=== PATIENT | female | born 1985 | race Two or more races ===

== ENCOUNTER 2018-04-04 19:18 | Emergency (ER) | payer MEDICARE, MEDICAID ==
[~2018-04-04] VITALS: Ht 152.4 cm; Wt 57.6 kg
[2018-04-04 23:10] VITALS: BP 102/51
[2018-04-04] MEDS ORDERED: IBUPROFEN 800 MG TAB PO ONE (23:30)
== END 2018-04-05 03:18 | disposition home or self-care (01) ==
LOC: ER 19:18
DX: S93.401A Sprain of unspecified ligament of right ankle, initial encounter (principal); S16.1XXA Strain of muscle, fascia and tendon at neck level, initial encounter; F41.9 Anxiety disorder, unspecified; F32.9 Major depressive disorder, single episode, unspecified; R51 Headache; M19.90 Unspecified osteoarthritis, unspecified site; F17.210 Nicotine dependence, cigarettes, uncomplicated; V43.52XA Car driver injured in collision with other type car in traffic accident, initial encounter; Y93.89 Activity, other specified; Y92.488 Other paved roadways as the place of occurrence of the external cause; Y99.8 Other external cause status
CPT/HCPCS: 70450; 72125; 73610; 81025

== ENCOUNTER 2018-07-14 00:07 | Emergency (ER) | payer MEDICARE, MEDICAID ==
[~2018-07-14] VITALS: Ht 152.4 cm; Wt 54.4 kg
[2018-07-14] MEDS ORDERED: KETOROLAC TROMETH 30 MG/ML 1ML VIAL IV ONE (01:15)
[2018-07-14 01:48] LABS: Basophils # (auto) 0 uL; Basophils % (auto) 0.4 % (0.0-2.0); Eosinophils # (auto) 0.2 uL; Eosinophils % (auto) 2.4 % (0.0-7.0); Hematocrit 34.4 % (36.0-46.0); Hemoglobin 11.4 g/dL (12.2-16.2); Lymphocytes # (auto) 3.2 uL; Mean Corpuscular Hemoglobin 27.3 pg (28.0-32.0); Mean Corpuscular Hgb Conc. 33.2 g/dL (32.0-36.0); Mean Corpuscular Volume 82.3 fL (80.0-100.0); Monocytes # (auto) 0.3 uL; Monocytes % (auto) 5.2 % (0.0-12.0); Neutrophils # (auto) 2.7 uL; Nucleated Red Blood Cells % 0.1 %; Platelet Count (auto) 191 10^3/uL (140-450); Red Blood Cells 4.18 10^6/uL (4.0-5.20); Red Cell Distribution Width 15.5 % (11.8-14.3); White Blood Cell 6.3 10^3/uL (4.4-10.8)
[2018-07-14 02:01] LABS: Potassium 3.5 mmol/L (3.5-5.1)
[2018-07-14 02:02] LABS: Albumin 3.7 g/dL (3.4-5.0); BUN/Creatinine Ratio 22.2; Calcium 7.9 mg/dL (8.5-10.1)
[2018-07-14 02:04] LABS: Bilirubin, Total 0.2 mg/dL (0.2-1.0)
[2018-07-14 04:29] VITALS: BP 119/72
== END 2018-07-14 04:02 | disposition home or self-care (01) ==
LOC: ER 00:11
DX: S06.0X1A Concussion with loss of consciousness of 30 minutes or less, initial encounter (principal); S22.32XA Fracture of one rib, left side, initial encounter for closed fracture; S16.1XXA Strain of muscle, fascia and tendon at neck level, initial encounter; F17.210 Nicotine dependence, cigarettes, uncomplicated; E07.9 Disorder of thyroid, unspecified; M19.90 Unspecified osteoarthritis, unspecified site; W11.XXXA Fall on and from ladder, initial encounter; Y93.89 Activity, other specified; Y92.098 Other place in other non-institutional residence as the place of occurrence of the external cause; Y99.8 Other external cause status
CPT/HCPCS: 36415; 70450; 71250; 72125; 73610; 80053; 84702; 85025; 96374; 99284; J1885

== ENCOUNTER 2019-12-04 20:22 | Emergency (ER) | payer MEDICARE, MEDICAID ==
[~2019-12-04] VITALS: Ht 152.4 cm; Wt 54.0 kg
[2019-12-04 21:00] LABS: Basophils # (auto) 0 10 ^3/uL (0-0.2); Basophils % (auto) 0.4 % (0.0-2.0); Eosinophils # (auto) 0.1 10 ^3/uL (0-0.8); Eosinophils % (auto) 1.2 % (0.0-7.0); Hematocrit 33.7 % (36.0-46.0); Lymphocytes # (auto) 2.9 10 ^3/uL (0.4-5.4); Lymphocytes % (auto) 34.8 % (10.0-50.0); Mean Corpuscular Hemoglobin 26.4 pg (28.0-32.0); Mean Corpuscular Hgb Conc. 32.5 g/dL (32.0-36.0); Mean Corpuscular Volume 81.1 fL (80.0-100.0); Monocytes # (auto) 0.6 10 ^3/uL (0-1.3); Neutrophils # (auto) 4.7 10 ^3/uL (1.6-8.6); Neutrophils % (auto) 56.6 % (37.0-80.0); Platelet Count (auto) 207 10^3/uL (140-450); Red Blood Cells 4.15 10^6/uL (4.0-5.20); White Blood Cell 8.4 10^3/uL (4.4-10.8)
[2019-12-04 21:17] LABS: INR 1.01 (0.9-1.15); Partial Thromboplastin Time 25.6 sec (23.64-32.05)
[2019-12-04 21:22] LABS: Albumin 3.4 g/dL (3.4-5.0); BUN/Creatinine Ratio 11.6; Calcium 8.2 mg/dL (8.5-10.1); Magnesium 2.3 mg/dL (1.6-2.6); Potassium 3.7 mmol/L (3.5-5.1)
[2019-12-04 21:24] LABS: Bilirubin, Total 0.2 mg/dL (0.2-1.0)
[2019-12-04 22:21] LABS: Urine Bacteria NONE SEEN /hpf (None Seen); Urine Blood 3+ /uL (Negative); Urine Specific Gravity 1.022 (1.001-1.035); Urine WBC 503 /hpf (0 - 5)
[2019-12-05] VITALS: BP 124/67
[2019-12-05] MEDS ORDERED: HYDROcodone-ACET 5/325MG TAB PO ONE (02:45)
== END 2019-12-05 02:59 | disposition home or self-care (01) ==
LOC: ER 20:23
DX: O20.0 Threatened abortion (principal); O23.41 Unspecified infection of urinary tract in pregnancy, first trimester; O99.331 Smoking (tobacco) complicating pregnancy, first trimester; Z3A.01 Less than 8 weeks gestation of pregnancy
CPT/HCPCS: 36415; 76801; 76817; 80053; 81001; 81025; 82150; 83690; 83735; 84702; 85025; 85610; 85730

== ENCOUNTER → 2019-12-06 | Emergency (ER) | payer MEDICARE, MEDICAID ==
[~2019-12-06] VITALS: Ht 152.4 cm; Wt 54.0 kg
[~2019-12-06] MED LIST: ACETAMINOPHEN 325 MG TAB PO ONE; cefTRIAXone SOD 1,000 MG VL IM ONE
[2019-12-06 22:45] LABS: Basophils # (auto) 0 10 ^3/uL (0-0.2); Eosinophils # (auto) 0.1 10 ^3/uL (0-0.8); Eosinophils % (auto) 1.5 % (0.0-7.0); Lymphocytes # (auto) 2.4 10 ^3/uL (0.4-5.4); Neutrophils # (auto) 3.7 10 ^3/uL (1.6-8.6)
[2019-12-06 22:47] LABS: Basophils % (auto) 0.4 % (0.0-2.0); Hematocrit 33.1 % (36.0-46.0); Hemoglobin 10.7 g/dL (12.2-16.2); Lymphocytes % (auto) 35.6 % (10.0-50.0); Mean Corpuscular Hemoglobin 26.3 pg (28.0-32.0); Mean Corpuscular Hgb Conc. 32.3 g/dL (32.0-36.0); Mean Corpuscular Volume 81.4 fL (80.0-100.0); Monocytes # (auto) 0.4 10 ^3/uL (0-1.3); Monocytes % (auto) 6.3 % (0.0-12.0); Neutrophils % (auto) 56.2 % (37.0-80.0); Platelet Count (auto) 191 10^3/uL (140-450); Red Blood Cells 4.06 10^6/uL (4.0-5.20); Red Cell Distribution Width 15.2 % (11.8-14.3); White Blood Cell 6.6 10^3/uL (4.4-10.8)
[2019-12-06 23:04] LABS: Albumin 3.2 g/dL (3.4-5.0); Calcium 8.4 mg/dL (8.5-10.1); INR 1.01 (0.9-1.15); Partial Thromboplastin Time 25.9 sec (23.64-32.05); Potassium 3.7 mmol/L (3.5-5.1)
[2019-12-06 23:06] LABS: BUN/Creatinine Ratio 19.5
[2019-12-06 23:13] LABS: Bilirubin, Total 0.2 mg/dL (0.2-1.0); Total Protein 6.8 g/dL (6.4-8.2)
[2019-12-06 23:18] VITALS: BP 104/52
[2019-12-06 23:58] LABS: Urine Bacteria MANY /hpf (None Seen); Urine Blood Negative /uL (Negative); Urine Mucus FEW (None Seen); Urine WBC 53 /hpf (0 - 5)
== END | disposition home or self-care (01) ==
LOC: ER 18:36
DX: N39.0 Urinary tract infection, site not specified (principal); D64.9 Anemia, unspecified; R79.89 Other specified abnormal findings of blood chemistry
CPT/HCPCS: 36415; 76801; 80053; 81001; 84702; 85025; 85610; 85730; 86850; 86900; 86901; 96372; 99284; J7030

== ENCOUNTER 2019-12-09 02:21 | Inpatient (IN) | payer MEDICARE, MEDICAID ==
[~2019-12-09] VITALS: Ht 152.4 cm; Wt 64.2 kg
[2019-12-09 03:34] LABS: Albumin 3.5 g/dL (3.4-5.0); Calcium 7.9 mg/dL (8.5-10.1); Potassium 3.2 mmol/L (3.5-5.1)
[2019-12-09 03:38] LABS: Bilirubin, Total 0.2 mg/dL (0.2-1.0); Total Protein 7.5 g/dL (6.4-8.2)
[2019-12-09 03:46] LABS: Basophils # (auto) 0 10 ^3/uL (0-0.2); Eosinophils # (auto) 0.1 10 ^3/uL (0-0.8); Hemoglobin 10.5 g/dL (12.2-16.2); Lymphocytes # (auto) 3.5 10 ^3/uL (0.4-5.4); Monocytes # (auto) 0.6 10 ^3/uL (0-1.3); Nucleated Red Blood Cells % 0.1 %; Red Blood Cells 3.96 10^6/uL (4.0-5.20); White Blood Cell 8.7 10^3/uL (4.4-10.8)
[2019-12-09 03:47] LABS: Basophils % (auto) 0.4 % (0.0-2.0); Eosinophils % (auto) 0.9 % (0.0-7.0); Hematocrit 32.2 % (36.0-46.0); Lymphocytes % (auto) 40.2 % (10.0-50.0); Mean Corpuscular Hemoglobin 26.5 pg (28.0-32.0); Mean Corpuscular Hgb Conc. 32.7 g/dL (32.0-36.0); Mean Corpuscular Volume 81.2 fL (80.0-100.0); Neutrophils # (auto) 4.5 10 ^3/uL (1.6-8.6); Neutrophils % (auto) 51.5 % (37.0-80.0); Platelet Count (auto) 203 10^3/uL (140-450); Red Cell Distribution Width 15.3 % (11.8-14.3)
[2019-12-09 03:57] LABS: Alcohol, Urine < 3.0 mg/dL (0-5); Amphetamine Screen, Urine NEGATIVE (NEGATIVE); Barbiturate Scree,Urine NEGATIVE (NEGATIVE); Benzodiazephine Screen, Urine NEGATIVE (NEGATIVE); Cannabinoid Screen, Urine NEGATIVE (NEGATIVE); Cocaine Screen, Urine NEGATIVE (NEGATIVE); Opiate Scree,Urine NEGATIVE (NEGATIVE); Phencyclidine Screen, Urine NEGATIVE (NEGATIVE)
[2019-12-09 04:26] LABS: Urine Bacteria NONE SEEN /hpf (None Seen); Urine Blood Negative /uL (Negative); Urine Mucus FEW (None Seen); Urine Specific Gravity 1.027 (1.001-1.035); Urine WBC 7 /hpf (0 - 5)
[2019-12-09] MEDS ORDERED: LACTATED RINGER'S 1,000 ML IV ONE ×2 (07:00)
[2019-12-09 08:21] LABS: INR 1.01 (0.9-1.15); Partial Thromboplastin Time 25.6 sec (23.64-32.05)
[2019-12-09] MEDS ORDERED: SUCCINYLCHOLINE CHLORIDE 20 MG/ML 10ML VIAL IV ONE (09:59)
[2019-12-09] MEDS ORDERED: METOCLOPRAMIDE HCL 5MG/ml INJ 2ml VIAL ONE (10:01)
[2019-12-09] MEDS ORDERED: ceFAZolin 1GM/50ML 50 ML IV ONE (10:01)
[2019-12-09] MEDS ORDERED: MIDAZOLAM HCL 1MG/1ML-2 ML VIAL ONE (10:01)
[2019-12-09] MEDS ORDERED: ROCURONIUM 10MG/ML 10ML VIAL IV ONE (10:01)
[2019-12-09] MEDS ORDERED: PROPOFOL 10 MG/ML 20 ML IV ONE (10:04)
[2019-12-09] MEDS ORDERED: HYDROCORTISONE SOD SUCC 100 MG/2ML INJ VIAL ONE (10:18)
[2019-12-09] MEDS ORDERED: fentaNYL CITRATE 100 MCG/2 ML VL ONE (10:19)
[2019-12-09] MEDS ORDERED: NALOXONE HCL 0.4 MG/ML VIAL IV PRN (10:30)
[2019-12-09] MEDS ORDERED: ONDANSETRON HCL 4 MG/2 ML VIAL IV PRN (10:30)
[2019-12-09] MEDS ORDERED: HYDROmorphone HCL 2 MG/ML VL IV PRN (10:30)
[2019-12-09] MEDS ORDERED: GLYCOPYRROLATE 0.2 MG/ML 1ML VIAL ONE (11:06)
[2019-12-09] MEDS ORDERED: NEOSTIGMINE 1 MG/ML INJ (10mg/10ML VIAL) ONE (11:06)
[2019-12-09] MEDS: HYDROmorphone HCL 2 MG/ML VL IV PRN ×8 (11:34→22:22)
[2019-12-09] MEDS ORDERED: NITROGLYCERIN 0.4 MG SL TAB SL PRN (11:45)
[2019-12-09] MEDS ORDERED: MORPHINE SULF INJ 2 MG/ML SYRINGE 1ML IV PRN (11:45)
[2019-12-09] MEDS ORDERED: ACETAMINOPHEN IV 100 ML IV ONE (11:45)
[2019-12-09] MEDS: KETOROLAC TROMETH 15 mg/ml 1ML VL IV SCH ×2 (12:00→18:00)
--- NOTE | 2019-12-09 13:00 | NUR ---
Telemetry admit from PACU MADDISON SANON admitted to Telemetry unit after SBAR received. Patient oriented to TRACY BAUTISTA, primary RN, unit, room, bed, and unit policies regarding patient care and visiting hours. Patient now on continuous telemetry monitoring, tele box # [id number] and telemetry reading on arrival to unit is 75 nsr.Encouraged to call if they need something. All questions and concerns addressed, patient verbalized understanding.
[2019-12-09] MEDS: ONDANSETRON HCL 4 MG/2 ML VIAL IV PRN ×2 (13:12→22:23)
[2019-12-09] MEDS: LACTATED RINGER'S 1,000 ML IV SCH ×2 (13:13→18:33)
--- NOTE | 2019-12-09 13:30 | NUR ---
DR BYRD TO CONTINUE ALL HOME MEDS; DR ANGEL WILL ASSUME CARE OF PATIENT MOVING FORWARD.
--- NOTE | 2019-12-09 13:42 | NUR ---
PAIN RE-ASSESSMENT PATIENT REPORTED A 4/10 MODERATE PAIN TO LOWER ABDOMEN WHICH IS AN IMPROVEMENT. PATIENT REQUESTED PAIN MEDICINE, PATIENT WILL BE GIVEN TORADOL AND REASSESSED. WILL CONTINUE TO MONITOR.
[2019-12-09 13:53] VITALS: BP 98/54
[2019-12-09] MEDS ORDERED: LORazepam 2MG/ML-1ML VIAL IV PRN (14:45)
[2019-12-09] MEDS ORDERED: levETIRAcetam 500 MG TAB PO ONE (14:45)
[2019-12-09] MEDS ORDERED: POTASSIUM EFFERVESENT TAB 25 MEQ PO ONE (15:00)
--- NOTE | 2019-12-09 16:50 | NUR ---
PAIN RE-ASSESSMENT PATIENT REPORTS PAIN 3/10 MILD AND TOLERABLE. PILLOW EFFECTIVE ABDOMINAL SPLINT WITH REPOSITIONING DISCOMFORT. WILL CONTINUE TO MONITOR
[2019-12-09 17:00] VITALS: BP 108/62
[2019-12-09] MEDS: traMADol HCL 50 MG TAB PO PRN (18:43)
--- NOTE | 2019-12-09 18:52 | NUR ---
PATIENT UP IN [place] WITH CALL LIGHT WITHIN REACH. PAIN MEDICATION GIVEN FOR 01/22 WILL CONTINUE TO MONITOR.
--- NOTE | 2019-12-09 19:02 | NUR ---
ENDORSED CARE TO GOLF INSTRUCTOR RN RIKY. PATIENT IS UP TO CHAIR GOLF INSTRUCTOR RN IS AWARE.
--- NOTE | 2019-12-09 19:27 | NUR ---
Opening Shift Note Assumed care of patient, awake and alert. No S/S of distress/SOB ,c/o s/p surgery pain 02/21 Instructed on POC and to call for assist PRN, will continue to monitor for changes Q1hr and PRN.Medicated with Hydromorphone 1mg.iv.p as needed for pain.
[2019-12-09] MEDS: SODIUM CHLOR 0.9% PF (SALINE LOCK) 10ML VIAL/SYR IV SCH (21:19)
[2019-12-09] MEDS: levETIRAcetam 500 MG TAB PO SCH (21:19)
--- NOTE | 2019-12-09 22:22 | NUR ---
Medicated with Hydromorphone 1mg.i.v.p. for pain level of 8/10 status post surgery -laparotomy ,and zofran 4mg.i.v.p. to prevent nausea as needed.
[2019-12-09 22:46] VITALS: BP 106/59
[2019-12-09] MEDS ORDERED: KETOROLAC TROMETH 30 MG/ML 1ML VIAL ONE (23:59)
[2019-12-10] MEDS: LACTATED RINGER'S 1,000 ML IV SCH ×4 (00:09→21:25)
[2019-12-10] MEDS: KETOROLAC TROMETH 15 mg/ml 1ML VL IV SCH ×2 (00:09→05:37)
[2019-12-10] MEDS ORDERED: PRED1PAK8 PO (00:47)
[2019-12-10] MEDS ORDERED: TRAM-297 PO (00:47)
[2019-12-10] MEDS ORDERED: KEP500T PO (00:47)
[2019-12-10] MEDS: HYDROmorphone HCL 2 MG/ML VL IV PRN ×5 (04:36→21:19)
[2019-12-10] MEDS: SODIUM CHLOR 0.9% PF (SALINE LOCK) 10ML VIAL/SYR IV SCH ×3 (05:36→22:21)
[2019-12-10 05:37] VITALS: BP 112/70
--- NOTE | 2019-12-10 07:12 | NUR ---
Report given to Lauren Gutierrez, patients dressing dry and intact.
[2019-12-10 07:16] LABS: Basophils # (auto) 0 10 ^3/uL (0-0.2); Basophils % (auto) 0.3 % (0.0-2.0); Eosinophils # (auto) 0 10 ^3/uL (0-0.8); Eosinophils % (auto) 0.7 % (0.0-7.0); Hematocrit 26.3 % (36.0-46.0); Hemoglobin 8.8 g/dL (12.2-16.2); Lymphocytes # (auto) 1.9 10 ^3/uL (0.4-5.4); Lymphocytes % (auto) 31.8 % (10.0-50.0); Mean Corpuscular Hemoglobin 27.4 pg (28.0-32.0); Mean Corpuscular Hgb Conc. 33.6 g/dL (32.0-36.0); Mean Corpuscular Volume 81.5 fL (80.0-100.0); Monocytes # (auto) 0.4 10 ^3/uL (0-1.3); Monocytes % (auto) 7.1 % (0.0-12.0); Neutrophils # (auto) 3.6 10 ^3/uL (1.6-8.6); Neutrophils % (auto) 60.1 % (37.0-80.0); Platelet Count (auto) 153 10^3/uL (140-450); Red Blood Cells 3.22 10^6/uL (4.0-5.20); Red Cell Distribution Width 15.3 % (11.8-14.3); White Blood Cell 5.9 10^3/uL (4.4-10.8)
[2019-12-10 07:29] LABS: Calcium 7.4 mg/dL (8.5-10.1); Potassium 3.7 mmol/L (3.5-5.1)
[2019-12-10 07:33] LABS: BUN/Creatinine Ratio 10.7
[2019-12-10] MEDS: levETIRAcetam 500 MG TAB PO SCH ×2 (08:37→21:19)
--- NOTE | 2019-12-10 08:49 | NUR ---
PAIN RE-ASSESSMENT PATIENT REPORTED PAIN 3/10 TOLERABLE AND MANAGED WELL WITH DILAUDID 1MG Q2HR. WILL CONTINUE TO MONITOR.
[2019-12-10 09:00] VITALS: BP 92/46
--- NOTE | 2019-12-10 11:30 | NUR ---
Banda catheter dc'd Order to discontinue banda catheter. Banda dc'd with clean technique following deflation of balloon. Patient tolerated well with no complaints of pain. Continue care.
[2019-12-10] MEDS: KETOROLAC TROMETH 30 MG/ML 1ML VIAL IV SCH ×2 (11:53→18:36)
--- NOTE | 2019-12-10 12:15 | NUR ---
URINATED IN THE TOILET WITHOUT DIFFICULTY, 350CC CLEAR YELLOW URINE.
--- NOTE | 2019-12-10 12:53 | NUR ---
PAIN RE-ASSESSMENT PATIENT REPORTED PAIN 3/10 TOLERABLE AND MANAGED WELL WITH TORADOL Q 6HRS.. WILL CONTINUE TO MONITOR
[2019-12-10 13:00] VITALS: BP 100/53
--- NOTE | 2019-12-10 13:30 | NUR ---
DR TEJEDA BEDSIDE ORDERES TO D/C GEORGE; KEEP BANDAGE COVERING DAVID HE WILL RE-ASSESS TOMORROW 12/11/19 AND ADVANCE DIET ONCE PATIENT PASSES GAS.
--- NOTE | 2019-12-10 14:02 | NUR ---
PAIN RE-ASSESSMENT PATIENT REPORTED PAIN 3/10 TOLERABLE AND MANAGED WELL WITH DILAUDID 1MG Q2HR. WILL CONTINUE TO MONITOR
--- NOTE | 2019-12-10 15:45 | NUR ---
IV removal/ INFILTRATED IV DC'd with clean sterile technique, catheter fully intact. Pressure dressing applied to site. Patient tolerated well.
--- NOTE | 2019-12-10 15:50 | NUR ---
ALVAREZ TO GO DOWNSTAIRS PATIENT SIGNED FORM
--- NOTE | 2019-12-10 16:30 | NUR ---
PATIENT OFF UNIT FOR VITALS.
--- NOTE | 2019-12-10 17:47 | NUR ---
IV insertion IV access obtained, via clean sterile technique by inserting 22 gauge catheter at RIGHT UPPER ARM AFTER 2 ATTEMPTS. IV secured properly. No trauma to site. Patient tolerated well.
--- NOTE | 2019-12-10 17:47 | NUR ---
RETURNED TO ROOM NO DISTRESS NOTED.
--- NOTE | 2019-12-10 18:00 | NUR ---
DIET ADVANCED TO FULL LIQUID.
--- NOTE | 2019-12-10 18:15 | NUR ---
PAIN RE-ASSESSMENT PATIENT REPORTED PAIN 7/10 TORODOL TO BE GIVEN ORDERED. ENCOURAGED PATIENT TO USE PILLOW A SPLINT WHEN REPOSITIONING, PATIENT REFUSED ICE PACK.
[2019-12-10] MEDS: SIMETHICONE 80 MG CHEWABLE TABLET PO SCH ×2 (18:35→21:19)
[2019-12-10] MEDS ORDERED: PREN-96 PO (18:55)
--- NOTE | 2019-12-10 18:55 | NUR ---
ENDORSED CARE TO NIGHT RN
[2019-12-10 18:58] LABS: Hematocrit 29.4 % (36.0-46.0); Hemoglobin 9.7 g/dL (12.2-16.2)
--- NOTE | 2019-12-10 19:00 | NUR ---
OPENING NOTE PATIENT AWAKE, ALERT AND ORIENTED. UNLABORED BREATHING. POC AND THE USE OF CALL LIGHT EXPLAINED TO PATIENT. BED ON LOWEST POSITION, CALL LIGHT WITH IN REACH.
--- NOTE | 2019-12-10 20:30 | NUR ---
PATIENT OFF UNIT, WENT DOWNSTAIRS
[2019-12-10 21:22] VITALS: BP 98/42
--- NOTE | 2019-12-10 22:20 | NUR ---
PATIENT CAME BACK TO THE UNIT, NO SIGNS OF DISTRESS
[2019-12-11] MEDS: KETOROLAC TROMETH 30 MG/ML 1ML VIAL IV SCH ×2 (01:10→05:35)
[2019-12-11] MEDS: HYDROmorphone HCL 2 MG/ML VL IV PRN ×7 (01:10→22:21)
--- NOTE | 2019-12-11 03:07 | NUR ---
PATIENT WAS MEDICATED FOR PAIN. UNLABORED RESPIRATIONS. ABDOMINAL DRESSING CLEAN AND DRY.
[2019-12-11] MEDS: LACTATED RINGER'S 1,000 ML IV SCH ×3 (03:12→18:10)
[2019-12-11 05:09] VITALS: BP 94/44
[2019-12-11] MEDS: SIMETHICONE 80 MG CHEWABLE TABLET PO SCH ×4 (05:35→22:21)
[2019-12-11] MEDS: SODIUM CHLOR 0.9% PF (SALINE LOCK) 10ML VIAL/SYR IV SCH ×3 (05:36→22:20)
[2019-12-11 05:50] LABS: Basophils # (auto) 0 10 ^3/uL (0-0.2); Basophils % (auto) 0.4 % (0.0-2.0); Eosinophils # (auto) 0.1 10 ^3/uL (0-0.8); Eosinophils % (auto) 1.8 % (0.0-7.0); Hematocrit 26.1 % (36.0-46.0); Hemoglobin 8.6 g/dL (12.2-16.2); Lymphocytes # (auto) 2.4 10 ^3/uL (0.4-5.4); Lymphocytes % (auto) 46.3 % (10.0-50.0); Mean Corpuscular Hemoglobin 27.1 pg (28.0-32.0); Mean Corpuscular Volume 82.1 fL (80.0-100.0); Monocytes # (auto) 0.5 10 ^3/uL (0-1.3); Neutrophils # (auto) 2.2 10 ^3/uL (1.6-8.6); Neutrophils % (auto) 42.5 % (37.0-80.0); Platelet Count (auto) 141 10^3/uL (140-450); Red Blood Cells 3.18 10^6/uL (4.0-5.20); Red Cell Distribution Width 15.3 % (11.8-14.3); White Blood Cell 5.2 10^3/uL (4.4-10.8)
[2019-12-11 06:20] LABS: Potassium 3.6 mmol/L (3.5-5.1)
[2019-12-11 06:26] LABS: BUN/Creatinine Ratio 11.8; Calcium 7.3 mg/dL (8.5-10.1)
--- NOTE | 2019-12-11 06:45 | NUR ---
PATIENT IN BED, RESTING UNLABORED BREATHING.
--- NOTE | 2019-12-11 07:25 | NUR ---
Opening shift note Assumed care of patient. Patient A&Ox4, respirations even and non-labored. Patient states she has 7/10 abdominal pain. Discussed POC with patient who verbalized understanding. Bed lowered/locked with 2 side rails up. Call light within reach. Will continue to monitor.
--- NOTE | 2019-12-11 08:00 | NUR ---
Pain Patient c/o /10 abdominal pain. Administered 1 mg Dilauded per EMAR. Will continue to monitor.
[2019-12-11 08:42] VITALS: BP 99/56
[2019-12-11] MEDS: levETIRAcetam 500 MG TAB PO SCH ×2 (09:56→22:20)
[2019-12-11] MEDS ORDERED: BISACODYL 10 MG RECT SUPP PR PRN (11:15)
[2019-12-11 12:58] VITALS: BP 107/67
[2019-12-11] MEDS: IBUPROFEN 800 MG TAB PO SCH ×2 (13:00→22:21)
--- NOTE | 2019-12-11 13:44 | NUR ---
Contacted Dr. Loera regarding antibiotics Contacted Dr. Loera per Dr. Rico Quiroz. Dr. Loera stated that the patient will no longer be taking antibiotics as long as the patient's temperature remains in the normal range. Current temperature is 97.9. Will continue to monitor.
--- NOTE | 2019-12-11 13:49 | NUR ---
Patient ambulating Patient ambulating downstairs utilizing wheelchair to visit with family. Educated on safety/risks, patient verbalized understanding.
--- NOTE | 2019-12-11 13:49 | NUR ---
ALVAREZ SIGNED IN CHART PATIENT WENT DOWNSTAIRS TO SEE FAMILY.
--- NOTE | 2019-12-11 15:00 | NUR ---
PATIENT IN LOBBY WITH FAMILY; DENIED PAIN; NO DISTRESS. Addendum: 12/11/19 at 1749 by TRACY BAUTISTA RN PATIENT AND FAMILY ALL WEARING MASKS.
--- NOTE | 2019-12-11 16:00 | NUR ---
PATIENT STILL IN LOBBY VISITING WITH FAMILY WEARING A MASK; DENIED PAIN; NO DISTRESS.
--- NOTE | 2019-12-11 17:50 | NUR ---
PATIENT STILL IN LOBBY WITH FAMILY , ALL ARE WEARING MASKS; DENIED PAIN NO DISTRESS NOTED.
--- NOTE | 2019-12-11 18:20 | NUR ---
PATIENT RETURNED TO ROOM. PAIN 7/ DILAUDID GIVEN ORDERED FOR SEVERE PAIN. PILLOW PROVIDED SPLINT. POSITIONED PATIENT ON RIGHT SIDE. WILL CONTINUE TO MONITOR.
--- NOTE | 2019-12-11 18:40 | NUR ---
PAIN RE-ASSESSMENT PAIN 4/10 MODERATE , PATIENT IS COMFORTABLE. IBUPROFEN WILL BE GIVEN SCHEDULED, PATIENT AWARE SHE CAN TAKE TRAMADOL NEEDED.
--- NOTE | 2019-12-11 18:50 | NUR ---
ENDORSED CARE TO NIGHT RN
--- NOTE | 2019-12-11 19:50 | NUR ---
Opening Shift Note Assumed care of patient, awake and alert. No S/S of distress/SOB. Patient is on room air. Respirations even and unlabored. Patient reports 5/10 pain in abdomen. Will medicate for pain with PRN pain medication per MD order. Patient has abdominal binder on. Side rails padded and suction at bedside for seizure precautions. Instructed on POC and to call for assist PRN, will continue to monitor for changes Q1hr and PRN.
[2019-12-11] MEDS: traMADol HCL 50 MG TAB PO PRN (19:54)
[2019-12-11 20:00] VITALS: BP 101/58
--- NOTE | 2019-12-11 21:10 | NUR ---
Patient off unit at this time. Patient has signed AMA form.
--- NOTE | 2019-12-11 21:45 | NUR ---
Patient back on unit at this time. Patient states director of physical security told her she has one hour before she gets discharged AMA. Patient educated she has 30 minutes before being discharged when going off the unit. Patient verbalized understanding.
[2019-12-11 22:00] VITALS: BP 101/58
--- NOTE | 2019-12-11 22:30 | NUR ---
Patient requested stool softener at this time but refused PRN medication available for constipation due to medication being a suppository. Patient requests oral stool softener. Will contact hospitalist.
--- NOTE | 2019-12-11 23:55 | NUR ---
Patient assisted with bed bath.
[2019-12-12] MEDS: LACTATED RINGER'S 1,000 ML IV SCH ×3 (00:01→13:01)
[2019-12-12] MEDS: traMADol HCL 50 MG TAB PO PRN ×2 (00:01→05:55)
--- NOTE | 2019-12-12 00:08 | NUR ---
Hospitalist paged regarding patient requesting oral stool softener for constipation. Awaiting callback at this time.
--- NOTE | 2019-12-12 00:18 | NUR ---
Received callback from AMBER Vogel, regarding patient requesting oral stool softener for constipation. New order received: Docusate sodium 100 mg PO BID starting now.
[2019-12-12] MEDS: DOCUSATE SOD 100 MG CAP PO SCH ×2 (00:34→10:04)
[2019-12-12] MEDS: HYDROmorphone HCL 2 MG/ML VL IV PRN ×4 (01:09→15:11)
[2019-12-12 05:00] VITALS: BP 103/55
[2019-12-12] MEDS: SODIUM CHLOR 0.9% PF (SALINE LOCK) 10ML VIAL/SYR IV SCH ×2 (05:54→13:10)
[2019-12-12] MEDS: IBUPROFEN 800 MG TAB PO SCH ×2 (05:54→13:11)
[2019-12-12] MEDS: SIMETHICONE 80 MG CHEWABLE TABLET PO SCH ×3 (05:54→13:10)
--- NOTE | 2019-12-12 06:10 | NUR ---
Incentive spirometer (IS) education provided. Patient educated on use of IS and educated to use IS 10 times per hour. Patient verbalized understanding and performed return demonstration. Patient able to reach 1500 ml.
--- NOTE | 2019-12-12 07:00 | NUR ---
CLOSING NOTE No S/S of distress/SOB. Patient is on room air. Respirations even and unlabored. Abdominal binder on. Seizure precautions in place; side rails padded and suction at bedside.
--- NOTE | 2019-12-12 07:50 | NUR ---
OPENING SHIFT NOTE Assumed care of patient. PT is awake & alert/oriented. No S/S of distress/SOB or pain. Bed in locked & lowest position with seizure precautions in place. Side rails up x2, with call light within reach. Instructed on POC and to call for assist PRN. Will continue to monitor for changes Q1hr and PRN.
[2019-12-12 09:00] VITALS: BP 108/61
[2019-12-12] MEDS: levETIRAcetam 500 MG TAB PO SCH (10:04)
[2019-12-12 13:00] VITALS: BP 115/63
--- NOTE | 2019-12-12 13:21 | NUR ---
PT STATED SHE WAS TOLD BY PHYSICAL THERAPY SHE COULD HAVE A WALKER FOR HOME AT TIME OF DISCHARGE. PHONED INDUSTRIAL ENGINEERING PROFESSOR. AWAITING CALLBACK.
--- NOTE | 2019-12-12 14:40 | NUR ---
SPOKE TO BLADE GRINDER AND DR CHUNG ABOUT WALKER. GAVE ORDERS. WILL CARRY OUT.
[2019-12-12 14:43] VITALS: BP 108/61
--- NOTE | 2019-12-12 15:06 | NUR ---
SPOKE WITH LUPE FROM BRAND ANALYST. STATED THAT IF AVAILABLE TO HER, PT WOULD RECEIVE WALKER AT HER HOME. PT IS AWARE. WILL PROCEED WITH DISCHARGE.
--- NOTE | 2019-12-12 15:09 | NUR ---
PT C/O OF PERSISTENT 7/10 ABDOMINAL PAIN AFTER MOTRIN ADMINISTRATION. WILL ADMINISTER PRN DILAUDID. PER MD ORDER.
--- NOTE | 2019-12-12 16:49 | NUR ---
Assessment Patient is a 34-year old female who is alert and oriented. Prior to admission patient lived home with her mother who is also her caregiver ([facility] [place]) and functioned with assistance. Patient informed me she does not have any medical equipment now. Patient will return home to her prior living arrangements post discharge and her mother will transport her home. Advised patient there is a Social Service consult for a walker. Informed patient clinical information will be faxed to [facility] and they will determine if she meets criteria for a walker. Patient informed me if she does meet criteria she would like walker to be deliver to home. Placed call to [facility], Spoke to Norma. Per Norma order has been received and they will deliver walker to patient home. Informed RN Will. Addendum: 12/12/19 at 1652 by LUPE MILIAN Amended: Links added.
[2019-12-12 17:00] VITALS: BP 122/66
--- NOTE | 2019-12-12 17:03 | NUR ---
Discharge instructions given as ordered. Encourage to follow up with PMD as instructed. All questions and concerns addressed. Patient verbalized understanding. Medication reconciliation form completed and copy given to patient. . IV removed with catheter intact, pressure dressing applied. Telemetry unit returned to ICU. Patient taken to vehicle via wheelchair with all personal belongings, accompanied by staff and family member. No distress noted at time of departure.
== END 2019-12-12 17:10 | disposition home or self-care (01) | DRG 818 ==
LOC: ER 02:23 → OR 1 09:33 → TELE-WESTW 09:34
PROVIDERS: ADMIT Specialist; ATTEND Family Medicine
PROC: 10T24ZZ Resection of Products of Conception, Ectopic, Percutaneous Endoscopic Approach (ICD-10-PCS; 2019-12-09)
PROC: 0DNU4ZZ Release Omentum, Percutaneous Endoscopic Approach (ICD-10-PCS; 2019-12-09)
PROC: 0UT54ZZ Resection of Right Fallopian Tube, Percutaneous Endoscopic Approach (ICD-10-PCS; principal; 2019-12-09 10:04)
DX: O00.101 Right tubal pregnancy without intrauterine pregnancy (principal); R71.0 Precipitous drop in hematocrit; G62.9 Polyneuropathy, unspecified; E07.9 Disorder of thyroid, unspecified; G40.909 Epilepsy, unspecified, not intractable, without status epilepticus; M19.90 Unspecified osteoarthritis, unspecified site; E03.9 Hypothyroidism, unspecified; E87.6 Hypokalemia; K66.0 Peritoneal adhesions (postprocedural) (postinfection); K59.00 Constipation, unspecified; F17.210 Nicotine dependence, cigarettes, uncomplicated; N83.202 Unspecified ovarian cyst, left side; F32.9 Major depressive disorder, single episode, unspecified; F41.9 Anxiety disorder, unspecified
CPT/HCPCS: 36415; 71045; 76801; 76817; 80048; 80053; 80307; 81001; 84443; 84702; 85014; 85018; 85025; 85610; 85730; 86850; 86900; 86901; 93005; 96365; 96372; 97116; 97163; 97530; G0378; J0131; J0330; J0690; J1885; J2250; J2405; J2704

== ENCOUNTER 2020-06-08 21:00 | Emergency (ER) | payer MEDICARE, MEDICAID ==
[~2020-06-08] VITALS: Ht 152.4 cm; Wt 52.6 kg
[~2020-06-08 21:00] MED LIST changes: -ACETAMINOPHEN 325 MG TAB PO ONE; +KEP500T PO; +PRED1PAK8 PO; +PREN-96 PO; +TRAM-297 PO; -cefTRIAXone SOD 1,000 MG VL IM ONE
[2020-06-08 22:16] LABS: Basophils # (auto) 0 10 ^3/uL (0-0.2); Basophils % (auto) 0.4 % (0.0-2.0); Eosinophils # (auto) 0.1 10 ^3/uL (0-0.8); Eosinophils % (auto) 2.2 % (0.0-7.0); Hemoglobin 10.3 g/dL (12.2-16.2); Lymphocytes # (auto) 2.7 10 ^3/uL (0.4-5.4); Lymphocytes % (auto) 43.3 % (10.0-50.0); Mean Corpuscular Hemoglobin 27.6 pg (28.0-32.0); Mean Corpuscular Hgb Conc. 33.2 g/dL (32.0-36.0); Mean Corpuscular Volume 83.3 fL (80.0-100.0); Monocytes # (auto) 0.4 10 ^3/uL (0-1.3); Monocytes % (auto) 6.7 % (0.0-12.0); Neutrophils % (auto) 47.4 % (37.0-80.0); Nucleated Red Blood Cells % 0.1 %; Platelet Count (auto) 155 10^3/uL (140-450); Red Blood Cells 3.71 10^6/uL (4.0-5.20); White Blood Cell 6.2 10^3/uL (4.4-10.8)
[2020-06-08 22:41] LABS: Albumin 3.3 g/dL (3.4-5.0); Calcium 8.1 mg/dL (8.5-10.1); Potassium 3.5 mmol/L (3.5-5.1)
[2020-06-08 22:45] LABS: BUN/Creatinine Ratio 10.8; Bilirubin, Total 0.2 mg/dL (0.2-1.0); Total Protein 6.3 g/dL (6.4-8.2)
[2020-06-08 23:12] LABS: Urine Bacteria FEW /hpf (None Seen); Urine Blood Negative /uL (Negative); Urine Mucus FEW (None Seen); Urine Specific Gravity 1.023 (1.001-1.035); Urine WBC 2 /hpf (0 - 5)
[2020-06-08] MEDS ORDERED: ONDANSETRON HCL 4 MG/2 ML VIAL IV ONE (23:45)
[2020-06-08] MEDS ORDERED: MORPHINE SULFATE 4 MG/ML SYR/VIAL IV ONE (23:45)
[2020-06-09 02:00] VITALS: BP 110/62
[2020-06-09] MEDS ORDERED: MAGNESIUM CITRATE SOLUTION 300 ML BTL PO ONE (02:30)
== END 2020-06-09 03:11 | disposition home or self-care (01) ==
LOC: ER 21:00
DX: K59.00 Constipation, unspecified (principal); F17.210 Nicotine dependence, cigarettes, uncomplicated; Z32.02 Encounter for pregnancy test, result negative
CPT/HCPCS: 36415; 74176; 80053; 81001; 83690; 84702; 85025; 96374; 96375; 99284; J2270; J2405

== ENCOUNTER 2020-12-07 13:09 | Emergency (ER) | payer MEDICARE, MEDICAID ==
[~2020-12-07] VITALS: Ht 152.4 cm; Wt 52.2 kg
[2020-12-07] MEDS ORDERED: ONDANSETRON HCL 4 MG/2 ML VIAL IV ONE (13:45)
[2020-12-07] MEDS ORDERED: MORPHINE SULF INJ 2 MG/ML SYRINGE 1ML IV ONE (13:45)
[2020-12-07] MEDS ORDERED: SODIUM CHLORIDE 0.9% 1,000 ML IVB ONE (13:45)
[2020-12-07 14:11] LABS: Basophils # (auto) 0 10 ^3/uL (0-0.2); Eosinophils # (auto) 0.1 10 ^3/uL (0-0.8); Hemoglobin 11.9 g/dL (12.2-16.2); Monocytes # (auto) 0.3 10 ^3/uL (0-1.3)
[2020-12-07 14:14] LABS: Basophils % (auto) 0.7 % (0.0-2.0); Eosinophils % (auto) 2.1 % (0.0-7.0); Hematocrit 35.7 % (36.0-46.0); Lymphocytes # (auto) 1.9 10 ^3/uL (0.4-5.4); Mean Corpuscular Hemoglobin 27.2 pg (28.0-32.0); Mean Corpuscular Hgb Conc. 33.4 g/dL (32.0-36.0); Mean Corpuscular Volume 81.4 fL (80.0-100.0); Monocytes % (auto) 6.5 % (0.0-12.0); Neutrophils # (auto) 2.5 10 ^3/uL (1.6-8.6); Neutrophils % (auto) 51.7 % (37.0-80.0); Nucleated Red Blood Cells % 0.2 %; Platelet Count (auto) 200 10^3/uL (140-450); Red Blood Cells 4.38 10^6/uL (4.0-5.20); Red Cell Distribution Width 15.1 % (11.8-14.3); White Blood Cell 4.9 10^3/uL (4.4-10.8)
[2020-12-07 15:11] LABS: BUN/Creatinine Ratio 16.3
[2020-12-07 15:12] LABS: Albumin 3.5 g/dL (3.4-5.0); Bilirubin, Total 0.4 mg/dL (0.2-1.0); Calcium 8.3 mg/dL (8.5-10.1)
[2020-12-07 17:52] VITALS: BP 110/58
== END 2020-12-07 18:00 | disposition home or self-care (01) ==
LOC: ER 13:09
DX: T20.10XA Burn of first degree of head, face, and neck, unspecified site, initial encounter (principal); F17.210 Nicotine dependence, cigarettes, uncomplicated; Z79.899 Other long term (current) drug therapy; W90.2XXA Exposure to laser radiation, initial encounter; Y93.89 Activity, other specified; Y92.89 Other specified places as the place of occurrence of the external cause; Y99.8 Other external cause status
CPT/HCPCS: 36415; 80053; 85025; 96361; 96374; 96375; 99284; J2270; J2405

== ENCOUNTER 2021-04-04 21:46 | Emergency (ER) | payer MEDICARE, MEDICAID ==
[~2021-04-04] VITALS: Ht 152.4 cm; Wt 54.4 kg
[2021-04-04 21:54] VITALS: BP 130/77
== END 2021-04-05 02:49 | disposition left against medical advice (07) ==
LOC: ER 21:47
DX: R51.9 Headache, unspecified (principal); R53.1 Weakness; Z53.21 Procedure and treatment not carried out due to patient leaving prior to being seen by health care provider
CPT/HCPCS: 93005

== ENCOUNTER 2021-04-29 22:53 | Emergency (ER) | payer MEDICARE, MEDICAID ==
[~2021-04-29] VITALS: Ht 152.4 cm; Wt 52.6 kg
[2021-04-29 22:53] VITALS: BP 135/69
== END 2021-04-29 23:54 | disposition left against medical advice (07) ==
LOC: ER 22:53
DX: R53.1 Weakness (principal); M79.10 Myalgia, unspecified site; Z53.21 Procedure and treatment not carried out due to patient leaving prior to being seen by health care provider

== ENCOUNTER 2021-07-08 08:35 | Emergency (ER) | payer MEDICARE, MEDICAID ==
[~2021-07-08] VITALS: Ht 152.4 cm; Wt 54.4 kg
[2021-07-08] MEDS ORDERED: KETOROLAC TROMETH 30 MG/ML 1ML VIAL IV ONE (09:15)
[2021-07-08] MEDS ORDERED: methylPREDNISolone SOD SUCC 125 MG/2 ML VL IV ONE (09:15)
[2021-07-08] MEDS ORDERED: SODIUM CHLORIDE 0.9% 1,000 ML IV ONE (09:15)
[2021-07-08 09:21] VITALS: BP 127/86
[2021-07-08 09:23] LABS: Basophils # (auto) 0 10 ^3/uL (0-0.2); Basophils % (auto) 0.1 % (0.0-2.0); Eosinophils # (auto) 0.1 10 ^3/uL (0-0.8); Eosinophils % (auto) 2.1 % (0.0-7.0); Hematocrit 38.7 % (36.0-46.0); Lymphocytes # (auto) 1.2 10 ^3/uL (0.4-5.4); Lymphocytes % (auto) 19.6 % (10.0-50.0); Mean Corpuscular Hemoglobin 28.8 pg (28.0-32.0); Mean Corpuscular Hgb Conc. 33.4 g/dL (32.0-36.0); Monocytes # (auto) 0.3 10 ^3/uL (0-1.3); Monocytes % (auto) 4.4 % (0.0-12.0); Neutrophils # (auto) 4.6 10 ^3/uL (1.6-8.6); Neutrophils % (auto) 73.8 % (37.0-80.0); Red Blood Cells 4.51 10^6/uL (4.0-5.20); Red Cell Distribution Width 14.3 % (11.8-14.3); White Blood Cell 6.2 10^3/uL (4.4-10.8)
[2021-07-08 09:29] LABS: Urine Bacteria NONE SEEN /hpf (None Seen); Urine Blood Negative /uL (Negative); Urine Specific Gravity 1.009 (1.001-1.035); Urine WBC <1 /hpf (0 - 5)
[2021-07-08 09:44] LABS: Albumin 3.4 g/dL (3.4-5.0); Magnesium 2.2 mg/dL (1.6-2.6)
[2021-07-08 09:48] LABS: BUN/Creatinine Ratio 11.1; Bilirubin, Total 0.3 mg/dL (0.2-1.0); Calcium 8.2 mg/dL (8.5-10.1)
[2021-07-08] MEDS ORDERED: PRED20TA2 PO (10:03)
[2021-07-08] MEDS ORDERED: DICY10CA GT (10:03)
[2021-07-08] MEDS ORDERED: OMEP20TA PO (10:43)
== END 2021-07-08 10:51 | disposition home or self-care (01) ==
LOC: ER 08:35
DX: M32.8 Other forms of systemic lupus erythematosus (principal); R10.32 Left lower quadrant pain; R10.11 Right upper quadrant pain; E03.9 Hypothyroidism, unspecified; F17.210 Nicotine dependence, cigarettes, uncomplicated; Z79.899 Other long term (current) drug therapy
CPT/HCPCS: 36415; 74176; 80053; 81001; 81025; 82150; 83690; 83735; 85025; 96361; 96374; 96375; 99284; J1885; J2930; J7030

== ENCOUNTER 2022-02-05 17:54 | Emergency (ER) | payer MEDICARE, MEDICAID ==
[~2022-02-05] VITALS: Ht 152.4 cm; Wt 56.7 kg
[~2022-02-05 17:54] MED LIST changes: +DICY10CA GT; +OMEP20TA PO; +PRED20TA2 PO
[2022-02-05 18:44] VITALS: BP 130/80
[2022-02-05] MEDS ORDERED: ACETAMINOPHEN 325 MG TAB PO ONE (20:15)
[2022-02-05 20:31] LABS: Basophils # (auto) 0 10 ^3/uL (0-0.2); Basophils % (auto) 0.7 % (0.0-2.0); Eosinophils # (auto) 0.1 10 ^3/uL (0-0.8); Hemoglobin 11.6 g/dL (12.2-16.2); Lymphocytes # (auto) 2.4 10 ^3/uL (0.4-5.4); Lymphocytes % (auto) 40.9 % (10.0-50.0); Mean Corpuscular Hemoglobin 27.9 pg (28.0-32.0); Mean Corpuscular Hgb Conc. 33.1 g/dL (32.0-36.0); Mean Corpuscular Volume 84.3 fL (80.0-100.0); Monocytes # (auto) 0.6 10 ^3/uL (0-1.3); Monocytes % (auto) 10.2 % (0.0-12.0); Neutrophils # (auto) 2.7 10 ^3/uL (1.6-8.6); Neutrophils % (auto) 46.2 % (37.0-80.0); Red Blood Cells 4.15 10^6/uL (4.0-5.20); Red Cell Distribution Width 13.9 % (11.8-14.3); White Blood Cell 5.9 10^3/uL (4.4-10.8)
[2022-02-05 22:23] LABS: Urine Bacteria NONE SEEN /hpf (None Seen); Urine Blood Negative /uL (Negative); Urine Mucus FEW (None Seen); Urine Specific Gravity 1.032 (1.001-1.035); Urine WBC 1 /hpf (0 - 5)
== END 2022-02-07 00:39 | disposition left against medical advice (07) ==
LOC: ER 17:54
DX: N93.9 Abnormal uterine and vaginal bleeding, unspecified (principal); E03.9 Hypothyroidism, unspecified; F17.210 Nicotine dependence, cigarettes, uncomplicated; Z79.899 Other long term (current) drug therapy
CPT/HCPCS: 36415; 76830; 76856; 81001; 84702; 85025

== ENCOUNTER 2022-02-06 12:04 | Emergency (ER) | payer MEDICARE, MEDICAID ==
[~2022-02-06] VITALS: Ht 152.4 cm; Wt 53.5 kg
[2022-02-06 14:12] LABS: Albumin 3.2 g/dL (3.4-5.0); BUN/Creatinine Ratio 15.4; Calcium 8.5 mg/dL (8.5-10.1); Potassium 4.2 mmol/L (3.5-5.1)
[2022-02-06 14:14] LABS: Bilirubin, Total 0.3 mg/dL (0.2-1.0)
[2022-02-06 14:15] LABS: Basophils # (auto) 0 10 ^3/uL (0-0.2); Basophils % (auto) 0.6 % (0.0-2.0); Eosinophils # (auto) 0.1 10 ^3/uL (0-0.8); Eosinophils % (auto) 2.1 % (0.0-7.0); Hematocrit 38.4 % (36.0-46.0); Hemoglobin 12.4 g/dL (12.2-16.2); Lymphocytes # (auto) 1.9 10 ^3/uL (0.4-5.4); Lymphocytes % (auto) 34.5 % (10.0-50.0); Mean Corpuscular Hemoglobin 27.2 pg (28.0-32.0); Mean Corpuscular Hgb Conc. 32.2 g/dL (32.0-36.0); Mean Corpuscular Volume 84.4 fL (80.0-100.0); Monocytes # (auto) 0.4 10 ^3/uL (0-1.3); Monocytes % (auto) 8.1 % (0.0-12.0); Neutrophils % (auto) 54.7 % (37.0-80.0); Nucleated Red Blood Cells % 0.1 %; Red Blood Cells 4.55 10^6/uL (4.0-5.20); White Blood Cell 5.4 10^3/uL (4.4-10.8)
[2022-02-06 15:44] VITALS: BP 134/68
== END 2022-02-06 16:57 | disposition home or self-care (01) ==
LOC: ER 12:04
DX: N93.8 Other specified abnormal uterine and vaginal bleeding (principal); E03.9 Hypothyroidism, unspecified; Z79.899 Other long term (current) drug therapy
CPT/HCPCS: 36415; 80053; 84702; 85025

== ENCOUNTER 2022-03-05 18:33 | Inpatient (IN) | payer MEDICARE, MEDICAID ==
[~2022-03-05] VITALS: Ht 152.4 cm; Wt 125.0 kg
[2022-03-05] MEDS ORDERED: ONDANSETRON HCL 4 MG/2 ML VIAL IV ONE (22:00)
[2022-03-05] MEDS ORDERED: HYDROCORTISONE SOD SUCC 100 MG/2ML INJ VIAL IV ONE (22:00)
[2022-03-05 22:50] LABS: Basophils # (auto) 0 10 ^3/uL (0-0.2); Basophils % (auto) 0.5 % (0.0-2.0); Eosinophils # (auto) 0.3 10 ^3/uL (0-0.8); Neutrophils # (auto) 2.2 10 ^3/uL (1.6-8.6); Neutrophils % (auto) 33.6 % (37.0-80.0)
[2022-03-05 22:51] LABS: Eosinophils % (auto) 5.1 % (0.0-7.0); Hematocrit 36.7 % (36.0-46.0); Lymphocytes # (auto) 3.4 10 ^3/uL (0.4-5.4); Lymphocytes % (auto) 53.8 % (10.0-50.0); Mean Corpuscular Hemoglobin 27.5 pg (28.0-32.0); Mean Corpuscular Hgb Conc. 32.8 g/dL (32.0-36.0); Monocytes # (auto) 0.4 10 ^3/uL (0-1.3); Red Blood Cells 4.36 10^6/uL (4.0-5.20); White Blood Cell 6.4 10^3/uL (4.4-10.8)
[2022-03-05 23:06] LABS: Albumin 3.4 g/dL (3.4-5.0); Calcium 8.6 mg/dL (8.5-10.1); Potassium 3.5 mmol/L (3.5-5.1)
[2022-03-05 23:10] LABS: BUN/Creatinine Ratio 11.8; Bilirubin, Total 0.2 mg/dL (0.2-1.0); CRP High Sensitivity 0.06 mg/dL (< 0.3); Total Protein 7.2 g/dL (6.4-8.2)
[2022-03-06] MEDS ORDERED: HYDROcodone-ACET 5/325MG TAB PO ONE (08:00)
[2022-03-06] MEDS ORDERED: ACETAMINOPHEN 325 MG TAB PO PRN (10:30)
[2022-03-06] MEDS ORDERED: ONDANSETRON HCL 4 MG/2 ML VIAL IV PRN (10:30)
[2022-03-06] MEDS ORDERED: VANCOMYCIN PER PHARMACY 0 MG IV SCH (10:30)
[2022-03-06] MEDS: cefTRIAXone 1GM/50ML D5W 50 ML IV SCH (11:09)
[2022-03-06] MEDS ORDERED: SODIUM CHLORIDE 0.9% 1,000 ML IV ONE (11:30)
[2022-03-06] MEDS ORDERED: IOHEXOL 300 MG/ML 100ML BOTTLE IJ ONE (11:41)
[2022-03-06 11:57] LABS: % Iron Saturation 5.6 % (15-50)
[2022-03-06] MEDS ORDERED: VANCOMYCIN 1GM/250ML 250 ML IV ONE (12:00)
[2022-03-06] MEDS: HYDROmorphone HCL 2 MG/ML VL/or syr IV PRN ×3 (12:03→20:47)
[2022-03-06] MEDS: SODIUM CHLOR 0.9% PF (SALINE LOCK) 10ML VIAL/SYR IV SCH ×2 (13:35→21:53)
[2022-03-06] MEDS: HYDROcodone-ACET 5/325MG TAB PO PRN ×2 (15:01→19:31)
[2022-03-06 16:50] VITALS: BP 121/61
[2022-03-06] MEDS: VANCOMYCIN 1GM/250ML 250 ML IV SCH (20:46)
[2022-03-06 22:10] VITALS: BP 108/58
[2022-03-07] MEDS: diphenhdrAMINE HCL 50 MG/1 ML VL IV PRN ×3 (00:06→23:22)
[2022-03-07] MEDS: VANCOMYCIN 1GM/250ML 250 ML IV SCH ×3 (04:12→20:02)
[2022-03-07] MEDS: HYDROmorphone HCL 2 MG/ML VL/or syr IV PRN ×5 (04:22→21:50)
[2022-03-07 05:42] VITALS: BP 102/61
[2022-03-07] MEDS: SODIUM CHLOR 0.9% PF (SALINE LOCK) 10ML VIAL/SYR IV SCH ×3 (06:19→22:14)
[2022-03-07 09:29] VITALS: BP 93/50
[2022-03-07] MEDS: cefTRIAXone 1GM/50ML D5W 50 ML IV SCH (10:00)
[2022-03-07 14:12] VITALS: BP 98/57
[2022-03-07 17:29] VITALS: BP 117/63
[2022-03-07 22:00] VITALS: BP 111/56
[2022-03-08] MEDS: VANCOMYCIN 1GM/250ML 250 ML IV SCH ×2 (04:09→15:45)
[2022-03-08] MEDS: HYDROmorphone HCL 2 MG/ML VL/or syr IV PRN ×5 (04:11→21:36)
[2022-03-08 05:00] VITALS: BP 94/46
[2022-03-08 05:22] LABS: Basophils # (auto) 0 10 ^3/uL (0-0.2); Basophils % (auto) 0.4 % (0.0-2.0); Eosinophils # (auto) 0.3 10 ^3/uL (0-0.8); Hematocrit 30.2 % (36.0-46.0); Hemoglobin 10.1 g/dL (12.2-16.2); Lymphocytes # (auto) 3.2 10 ^3/uL (0.4-5.4); Lymphocytes % (auto) 47.4 % (10.0-50.0); Mean Corpuscular Hgb Conc. 33.5 g/dL (32.0-36.0); Mean Corpuscular Volume 83.4 fL (80.0-100.0); Monocytes # (auto) 0.4 10 ^3/uL (0-1.3); Monocytes % (auto) 5.8 % (0.0-12.0); Neutrophils # (auto) 2.8 10 ^3/uL (1.6-8.6); Neutrophils % (auto) 41.4 % (37.0-80.0); Red Blood Cells 3.62 10^6/uL (4.0-5.20); Red Cell Distribution Width 13.8 % (11.8-14.3); White Blood Cell 6.8 10^3/uL (4.4-10.8)
[2022-03-08] MEDS: SODIUM CHLOR 0.9% PF (SALINE LOCK) 10ML VIAL/SYR IV SCH ×3 (05:42→22:08)
[2022-03-08 09:00] VITALS: BP 113/58
[2022-03-08] MEDS: diphenhdrAMINE HCL 50 MG/1 ML VL IV PRN ×3 (09:17→20:15)
[2022-03-08] MEDS: cefTRIAXone 1GM/50ML D5W 50 ML IV SCH (10:23)
[2022-03-08 13:00] VITALS: BP 105/52
[2022-03-08 17:00] VITALS: BP 125/67
[2022-03-08] MEDS: levETIRAcetam 500 MG TAB PO SCH (21:36)
[2022-03-08 22:00] VITALS: BP 104/53
[2022-03-08] MEDS ORDERED: levETIRAcetam 500 MG TAB PO SCH (22:00)
[2022-03-09] MEDS: VANCOMYCIN 1GM/250ML 250 ML IV SCH (03:57)
[2022-03-09] MEDS: diphenhdrAMINE HCL 50 MG/1 ML VL IV PRN ×2 (04:42→10:47)
[2022-03-09] MEDS: HYDROmorphone HCL 2 MG/ML VL/or syr IV PRN ×2 (04:47→10:12)
[2022-03-09 05:00] VITALS: BP 102/58
[2022-03-09] MEDS: SODIUM CHLOR 0.9% PF (SALINE LOCK) 10ML VIAL/SYR IV SCH (05:43)
[2022-03-09 05:46] LABS: Basophils # (auto) 0 10 ^3/uL (0-0.2); Basophils % (auto) 0.5 % (0.0-2.0); Eosinophils # (auto) 0.3 10 ^3/uL (0-0.8); Eosinophils % (auto) 5.2 % (0.0-7.0); Hematocrit 30.2 % (36.0-46.0); Hemoglobin 10.2 g/dL (12.2-16.2); Lymphocytes # (auto) 2.8 10 ^3/uL (0.4-5.4); Lymphocytes % (auto) 44.7 % (10.0-50.0); Mean Corpuscular Hemoglobin 27.9 pg (28.0-32.0); Mean Corpuscular Hgb Conc. 33.7 g/dL (32.0-36.0); Monocytes # (auto) 0.4 10 ^3/uL (0-1.3); Monocytes % (auto) 6.7 % (0.0-12.0); Neutrophils # (auto) 2.7 10 ^3/uL (1.6-8.6); Neutrophils % (auto) 42.9 % (37.0-80.0); Nucleated Red Blood Cells % 0.1 %; Red Blood Cells 3.64 10^6/uL (4.0-5.20); White Blood Cell 6.3 10^3/uL (4.4-10.8)
[2022-03-09 06:02] LABS: Potassium 3.9 mmol/L (3.5-5.1)
[2022-03-09 06:07] LABS: BUN/Creatinine Ratio 13.6
[2022-03-09 09:00] VITALS: BP 94/47
[2022-03-09] MEDS: levETIRAcetam 500 MG TAB PO SCH (10:11)
[2022-03-09] MEDS ORDERED: SULF400T11 PO (10:35)
[2022-03-09 10:50] VITALS: BP 105/51
== END 2022-03-09 12:11 | disposition home or self-care (01) | DRG 121 ==
LOC: ER 18:52 → OVERFLOW 03-06 10:23 → WEST WING 03-06 16:30
PROVIDERS: ADMIT Internal Medicine; ATTEND Internal Medicine Pulmonary Disease
DX: H05.012 Cellulitis of left orbit (principal); L03.213 Periorbital cellulitis; M32.9 Systemic lupus erythematosus, unspecified; D64.9 Anemia, unspecified; M35.9 Systemic involvement of connective tissue, unspecified; Z20.822 Contact with and (suspected) exposure to COVID-19; L25.9 Unspecified contact dermatitis, unspecified cause; R56.9 Unspecified convulsions; Z87.891 Personal history of nicotine dependence; Z87.59 Personal history of other complications of pregnancy, childbirth and the puerperium; Z80.9 Family history of malignant neoplasm, unspecified
CPT/HCPCS: 36415; 70481; 80048; 80053; 80202; 82565; 82728; 83540; 83550; 83605; 84702; 85025; 85045; 85652; 86141; 86160; 87040; 96365; 96375; G0378; J0696; J2405

== ENCOUNTER 2023-05-20 15:08 | Emergency (ER) | payer MEDICARE, MEDICAID ==
[~2023-05-20] VITALS: Ht 152.4 cm; Wt 57.3 kg
[~2023-05-20 15:08] MED LIST changes: +AMOX500T3 PO; +SULF400T11 PO
[2023-05-20 17:09] LABS: Basophils # (auto) 0 10 ^3/uL (0-0.2); Basophils % (auto) 0.9 % (0.0-2.0); Eosinophils # (auto) 0.1 10 ^3/uL (0-0.8); Eosinophils % (auto) 2.4 % (0.0-7.0); Hemoglobin 11.2 g/dL (12.2-16.2); Lymphocytes # (auto) 2.6 10 ^3/uL (0.4-5.4); Mean Corpuscular Hemoglobin 27.9 pg (28.0-32.0); Mean Corpuscular Hgb Conc. 33.1 g/dL (32.0-36.0); Mean Corpuscular Volume 84.4 fL (80.0-100.0); Monocytes # (auto) 0.4 10 ^3/uL (0-1.3); Neutrophils # (auto) 2.4 10 ^3/uL (1.6-8.6); Neutrophils % (auto) 43.7 % (37.0-80.0); Nucleated Red Blood Cells % 0.2 %; Red Blood Cells 4.03 10^6/uL (4.0-5.20); Red Cell Distribution Width 14.6 % (11.8-14.3); White Blood Cell 5.6 10^3/uL (4.4-10.8)
[2023-05-20 17:41] VITALS: BP 122/64; PULSE 71; RESP 17; TEMP 98; O2SAT 100
== END 2023-05-20 17:50 | disposition home or self-care (01) ==
LOC: ER 15:08
DX: N93.8 Other specified abnormal uterine and vaginal bleeding (principal); R10.2 Pelvic and perineal pain; F41.9 Anxiety disorder, unspecified; F32.9 Major depressive disorder, single episode, unspecified; M19.90 Unspecified osteoarthritis, unspecified site; Z98.890 Other specified postprocedural states; Z79.899 Other long term (current) drug therapy
CPT/HCPCS: 36415; 76856; 84702; 85025

== ENCOUNTER 2024-12-09 12:36 | Emergency (ER) | payer MEDICARE, MEDICAID ==
[~2024-12-09] VITALS: Ht 152.4 cm; Wt 53.9 kg
[~2024-12-09 12:36] MED LIST changes: +ACE3T PO; +AUG875T PO; +IBUP-1455 PO
[2024-12-09 13:16] VITALS: BP 136/84; PULSE 79; RESP 18; TEMP 99.2; O2SAT 98
--- NOTE | 2024-12-09 13:16 | ED.PDOC ---
History of Present Illness HPI Comments 39 y.o female with PMHx of lupus and seizures, presents to the ED for an evaluation of right foot pain that started 3 days ago. Patient reports history of neuropathy with multiple foot surgeries that she follows up with at [facility]. Patient made an appointment to see specialist but states date is too far out and pain is new onset, concerning her. Patient also complains of a lump to her right breast that developed 2 days ago. She denies any numbness, tingling sensation, nipple discharge, erythema or swelling to lump site. Time Seen by MD: 13:07 Reviewed Notes: Nurses Notes, Medications, Allergies Allergies: Coded Allergies: NO KNOWN ALLERGIES (Unverified , 12/09/24) Home Meds Active Scripts Cephalexin (KEFLEX CAPSULE) 250 Mg Cp, 1 CAP PO QID, #28 CAP Prov:GREGG RUEDA MD 12/09/24 Information Source: Patient Mode of Arrival: Ambulatory Severity: Moderate Timing: Days Duration: Since onset Prehospital treatment: None Past Medical History PAST MEDICAL HISTORY: Seizures Past Medical History (Other): Lupus and neuropathy Surgical History: (2) Surgical History (Other): Bilateral feet, etopic , ovarian rupture MANAGER MUSIC History: Ectopic , Ovarian Cysts Family History Family History: Reviewed,noncontributory to illness Social History Smoker: Non-Smoker Alcohol: Denies ETOH Use Drugs: Denies Drug Use Lives In: Home Constitutional: denies: chills, diaphoresis, fatigue, fever, malaise, sweats, weakness, others EENTM: denies: blurred vision, double vision, ear bleeding, ear discharge, ear drainage, ear pain, ear ringing, eye pain, eye redness, hearing loss, mouth pain, mouth swelling, nasal discharge, nose bleeding, nose congestion, nose pain, photophobia, tearing, throat pain, throat swelling, voice changes, others Respiratory: denies: cough, hemoptysis, orthopnea, SOB at rest, shortness of breath, SOB with excertion, stridor, wheezing, others Cardiovascular: denies: chest pain, dizzy spells, diaphoresis, Dyspnea on exertion, edema, irregular heart beat, left arm pain, lightheadedness, palpi tations, PND, syncope, others Gastrointestinal: denies: abdomen distended, abdominal pain, blood streaked bowels, constipated, diarrhea, dysphagia, difficulty swallowing, hematemesis, melena, nausea, poor appetite, poor fluid intake, rectal bleeding, rectal pain, vomiting, others Genitourinary: denies: abnormal vagina bleeding, burning, dyspareunia, dysuria, flank pain, frequency, hematuria, incontinence, pain, , vagina discharge, urgency, others Neurological: denies: dizziness, fainting, headache, left sided numbness, left sided weakness, numbness, paresthesia, pre-existing deficit, right sided numbness, right sided weakness, seizure, speech problems, tingling, tremors, weakness, others Musculoskeletal: reports: others (right foot pain ); denies: back pain, gout, joint pain, joint swelling, muscle pain, muscle stiffness, neck pain Integumetry: reports: others (right breast lump ); denies: bruises, change in color, change in hair/nails, dryness, laceration, lesions, lumps, rash, wounds Allergic/Immunocompromised: denies: Difficulty Healing, Frequent Infections, Hives, Itching, others Hematologic/Lymphatic: denies: anemia, blood clots, easy bleeding, easy bruising, swollen glands, others Endocrine: denies: excessive hunger, excessive sweating, excessive thirst, excessive urination, flushing, intolerance to cold, intolerance to heat, unexplained weight gain, unexplained weight loss, others Psychiatric: denies: anxiety, bipolar disorder, depression, hopeless, panic disorder, schizophrenia, sleepless, suicidal, others All Other Systems: Reviewed and Negative Physical Exam General Appearance: No Apparent Distress HEENT: Normal ENT Inspection, Pharynx Normal, TMs Normal Neck: Full Range of Motion, Non-Tender, Normal, Normal Inspection Respiratory: Chest Non-Tender, Lungs Clear, No Accessory Muscle Use, No Respiratory Distress, Normal Breath Sounds Cardiovascular: No Edema, No JVD, No Murmur, No Gallop, Normal Peripheral Pulses, Regular Rate/Rhythm Breast Exam: Deferred Gastrointestinal: No Organomegaly, Non Tender, No Pulsatile Mass, Normal Bowel Sounds, Soft Genitalia: Deferred Pelvic: Deferred Rectal: Deferred Extremities: No calf tenderness, Normal capillary refill, Normal inspection, Normal range of motion, Non-tender, No pedal edema Musculoskeletal : Apperance: Normal Neurologic: Alert, logistics project manager II-XII nml as Tested, No Motor Deficits, Normal Affect, Normal Mood, No Sensory Deficits Cerebellar Function: Normal Reflexes: Normal Skin: Dry, Warm, Other (Minimal redness around the right breast consistent with cellulitis) Lymphatic: No Adenopathy Was a procedure done? Was a procedure done?: No Differential Dx Considerations may include: Cellulitis, abscess X-Ray, Labs, Meds, VS Vital Signs Date Time Temp Pulse Resp B/P (MAP) Pulse Ox O2 Delivery O2 Flow Rate FiO2 12/09/24 13:16 99.2 79 18 136/84 (101) 98 99.2 X-ray of the right foot shows: Findings/Impression: 2 views of the right foot. There is no evidence of an acute fracture, dislocation, blastic, or lytic lesions. Moderate degenerative changes of the hindfoot and 1st tarsometatarsal joint. Limited evaluation of the phalanges due to flexed positioning. No radiopaque foreign bodies. No superficial soft tissue abnormalities. Patient was given tramadol for the pain The patient was being discharged and will follow up with the primary care doctor The patient was also [facility] Images Reviewed?: Images reviewed and evaluated by me Time of 1ST Reevaluation: 13:16 Reevaluation 1ST: Unchanged Patient Education/Counseling: Diagnosis, Treatment, Prognosis, Need For Follow Up Family Education/Counseling: No Family Present Departure 1 Departure Time of Disposition: 14:03 Impression: Primary Impression: Right foot pain Additional Impression: Cellulitis of chest wall Disposition: 01 HOME / SELF CARE / HOMELESS Condition: Fair e-Prescriptions Cephalexin (KEFLEX CAPSULE) 250 Mg Cp 1 CAP PO QID, #28 CAP Prov: GREGG RUEDA MD 12/09/24 Discharged With: Self Critical Care Note Critical Care Time?: No Stability Stability form required: No I personally scribed for GREGG RUEDA MD ([email or web address]) on 12/09/24 at 13:16. Electronically submitted by Yeimi Sullivan ([facility]). GREGG RUEDA MD Dec 09, 2024 13:16
--- NOTE | 2024-12-09 13:54 | DVH ---
EXAM: XY R FOOT 2 VIEW XRAY CLINICAL HISTORY: pain COMPARISON: None TECHNIQUE: XY R FOOT 2 VIEW XRAY Findings/Impression: 2 views of the right foot. There is no evidence of an acute fracture, dislocation, blastic, or lytic lesions. Moderate degenerat jt changes of the hindfoot and 1st tarsometatarsal joint. Limited evaluation of the phalanges due to flexed positioning. No radiopaque foreign bodies. No superficial soft tissue abnormalities.
[2024-12-09] MEDS ORDERED: CEPH250C PO (14:06)
[2024-12-09] MEDS: traMADol HCL 50 MG TAB PO ONE (14:50)
== END 2024-12-09 15:01 | disposition home or self-care (01) ==
LOC: ER 12:36 → MERGE 12:36 → ER 15:01
DX: M79.671 Pain in right foot (principal); L03.313 Cellulitis of chest wall; Z87.59 Personal history of other complications of pregnancy, childbirth and the puerperium; Z98.890 Other specified postprocedural states
CPT/HCPCS: 73620